=== PATIENT | female | born 1965 | race African-American/Black ===

== ENCOUNTER 2019-08-26 16:49 | Emergency (ER) | payer OTHER ==
[~2019-08-26] VITALS: Ht 167.6 cm; Wt 86.2 kg
[2019-08-26 18:33] LABS: ABSOLUTE NEUTROPHILS 3.5 thou/uL (1.4-8.2); BASOPHILS 0.7 % (0.0-2.0); HEMATOCRIT 42.6 % (37.0-47.0); HEMOGLOBIN 14.1 gm/dL (12.0-15.0); LYMPHOCYTES 28.9 % (24.0-44.0); MCH 31.3 pg (26.0-34.0); MCHC 33.2 g/dL (28.0-37.0); MCV 94.4 fL (80.0-100.0); MONOCYTES 4.3 % (1.0-8.0); PLATELET COUNT 289 thou/uL (150-400); POLYS 64.1 % (36.0-66.0); RBC 4.51 mil/uL (4.20-5.00); RDW 14.3 % (10.5-14.5); WBC 5.5 thou/uL (4.0-11.0)
[2019-08-26 18:39] LABS: CALCIUM 9.7 mg/dL (8.5-10.1); POTASSIUM 3.3 mmol/L (3.5-5.1)
[2019-08-26] MEDS ORDERED: NORFLEX100 MG PO (21:22)
[2019-08-26] MEDS ORDERED: NORCO 5-325 TA1 EAC1 PO (21:22)
[2019-08-26] MEDS ORDERED: PREDNISONE 10 M10 MG PO (21:22)
[2019-08-26 21:34] VITALS: BP 150/95
== END 2019-08-26 21:34 | disposition home or self-care (01) ==
LOC: ER 16:49
PROVIDERS: Physician Assistant
DX: M54.5 Low back pain (principal); M19.90 Unspecified osteoarthritis, unspecified site; F17.210 Nicotine dependence, cigarettes, uncomplicated; Z88.1 Allergy status to other antibiotic agents

== ENCOUNTER 2020-11-27 14:24 | Emergency (ER) | payer OTHER ==
[~2020-11-27] VITALS: Ht 167.6 cm; Wt 93.9 kg
[~2020-11-27 14:24] MED LIST: NORCO 5-325 TA1 EAC1 PO; NORFLEX100 MG PO; PREDNISONE 10 M10 MG PO
[2020-11-27 14:26] VITALS: BP 132/87
[2020-11-27] MEDS ORDERED: FLEXERIL PO (15:25)
== END 2020-11-27 16:18 | disposition home or self-care (01) ==
LOC: ER 14:24
DX: S39.012A Strain of muscle, fascia and tendon of lower back, initial encounter (principal); S93.401A Sprain of unspecified ligament of right ankle, initial encounter; S70.12XA Contusion of left thigh, initial encounter; M19.90 Unspecified osteoarthritis, unspecified site; F17.210 Nicotine dependence, cigarettes, uncomplicated; Z96.643 Presence of artificial hip joint, bilateral; Z79.899 Other long term (current) drug therapy; Z88.1 Allergy status to other antibiotic agents; V69.49XA Driver of heavy transport vehicle injured in collision with other motor vehicles in traffic accident, initial encounter; Y93.I9 Activity, other involving external motion; Y92.488 Other paved roadways as the place of occurrence of the external cause; Y99.8 Other external cause status